=== PATIENT | male | born 1995 | race Caucasian/White ===

== ENCOUNTER 2019-07-04 20:16 | Emergency (ER) | payer OTHER ==
[2019-07-04] MEDS ORDERED: Lidocaine 1% (PF) 30 ML VIAL ONE (22:36)
[2019-07-04] MEDS ORDERED: Adacel (T-DAP) 0.5 ML SYRINGE ONE (22:36)
[2019-07-04] MEDS ORDERED: Morphine 4 MG/ML VIAL ONE (22:40)
[2019-07-04] MEDS ORDERED: Morphine 2 MG/ML SYRINGE ONE (22:40)
[2019-07-04] MEDS ORDERED: Bacitracin 1 PK ONE ×2 (22:59)
[2019-07-04] MEDS ORDERED: Ketorolac Tromethamine 30 MG/ML VIAL ONE (23:33)
--- NOTE | 2019-07-04 23:33 | RAD ---
Radiograph left forearm 2 views: HISTORY: 23-year-old male status post laceration injury to forearm. FINDINGS: There is irregularity of soft tissues at the mid-proximal ulnar side of the forearm, but no radiopaqu e foreign body. No fracture or any other significant osseous focal abnormality of the radius or ulna. IMPRESSION: 1. Soft tissue laceration of forearm. 2. No fracture
[2019-07-05] MEDS ORDERED: Bacitracin 1 PK ONE (00:38)
== END 2019-07-05 01:00 | disposition home or self-care (01) ==
LOC: ERS 20:16
DX: S51.812A Laceration without foreign body of left forearm, initial encounter (principal); F17.200 Nicotine dependence, unspecified, uncomplicated; X99.0XXA Assault by sharp glass, initial encounter
CPT/HCPCS: 12002; 90471; 90715; 96374; 96375; J1885; J2001; J2270

== ENCOUNTER 2019-07-16 12:43 | Emergency (ER) | payer OTHER | END 2019-07-16 14:34 | disposition home or self-care (01) | LOC: ERS 12:43 | DX: S51.812D Laceration without foreign body of left forearm, subsequent encounter (principal); F17.200 Nicotine dependence, unspecified, uncomplicated; X99.0XXD Assault by sharp glass, subsequent encounter | CPT/HCPCS: 99406 ==